=== PATIENT | male | born 1950 | race Caucasian/White ===

== ENCOUNTER 2025-06-15 11:52 | Emergency (ER) | payer MEDICARE, BC, SELFPAY ==
--- NOTE | 2025-06-15 11:45 | RT.EKG_ITS ---
APPROVED REPORT Exam: Resting ECG Reason for Exam: Heart problems Patient Location: E HR:65 bpm ECG Measurements Heart Rate 65 AXIS GA 151 P 72 QRSd 91 QRS 75 QT 405 T 44 QTc 422 Conclusion Sinus rhythm...normal P axis, V-rate 60- 99 No Occlusion OR
[2025-06-15 11:54] VITALS: BP 149/79; PULSE 70; RESP 16; TEMP 36.6; O2SAT 96
--- NOTE | 2025-06-15 12:00 | DI.RAD_ITS ---
Exam(s) XR CHEST 2V PA LATERAL EXAM: XR CHEST 2V PA LATERAL CLINICAL HISTORY: Chest pain TECHNIQUE: 2D digital imaging was performed. Two views. COMPARISON: No exams were available for comparison FINDINGS: HEART: Normal size. Aorta: Not dilated. PULMONARY VASCULATURE: Normal. MEDIASTINUM: Unremarkable. LUNGS: Clear. PLEURAL SPACE: No pleural effusion or pneumothorax. BONE:Unremarkable for age. SOFT TISSUES: Unremarkable. IMPRESSION: No acute abnormality. DATA REPOSITORY: RADIATION DOSE DELIVERED:
[2025-06-15 12:03] VITALS: PULSE 70
[2025-06-15 12:09] VITALS: PULSE 68; O2SAT 97
--- NOTE | 2025-06-15 12:10 | W.ED.GENAD ---
Discharge Plan Disposition Patient Disposition: Home Discharge Details Clinical Impression: Nausea, Dizziness Primary Care Provider: Jose Guadalupe Olivas ED Provider: Goyo Hamilton Home Meds and New Rx's Prescriptions: Continued amlodipine 5 mg tablet 5 mg PO DAILY tamsulosin [Flomax] 2 cap PO DAILY Discharge Instructions Additional Instructions: You were seen in the emergency department for your dizziness. Your blood work shows that you are having no signs of any damage to your heart. As we discussed if your dizziness returns if you develop chest pain or shortness breath or if you have any other concerns please return to the emergency department. Otherwise please follow-up with your primary care provider next week. HPI General Date/Time Provider Initiated Documentation: 06/15/25 11:59. HPI Narrative: MDM This is an overall quite well-appearing normothermic and not tachycardic 75-year-old male with nauseousness and dizziness. He did endorse some chest tightness so we will obtain troponin in setting of ischemic ECG to assess for ACS. He has no nystagmus so I did not applied hints exam as I was not suspicious for posterior circulation CVA. Furthermore he had no dysmetria and no Romberg nor dysmetria so I did not feel he required a CT scan of his head nor would he be a TNK candidate. He does endorse being stung yesterday by wasps but he is not hypotensive nor does he have any airway swelling or wheezing to suggest anaphylaxis so no indication for epinephrine. No pain or proportion to suggest necrotizing soft tissue infection. Given shortness of breath and low risk for PE will obtain dimer to stratify. No cough nor fevers to suggest pneumonia. No trauma to chest to suggest pneumothorax. Not hypotensive nor a dialysis patient making my suspicion low for tamponade. No rash to chest to suggest zoster. The patient's upper abdomen he has a well-circumscribed mobile approximately 1 cm subcutaneous nodule. He has no signs of incarceration or obstruction and I do not feel that this subcutaneous nodule represents a hernia I did not feel he required a CT scan of his abdomen. We discussed that he should monitor this area and return if it worsens grew again inflamed or if he had any other concerns. He has no erythema to suggest cellulitis. No fluctuance to suggest abscess. 1:53 PM Reassuring initial troponin. Reassuring proBNP. CBC lacks anemia or thrombocytopenia and leukocytosis. Basic metabolic panel with normal renal function. No acute electrolyte abnormalities. Normal reassuring magnesium. Chest x-ray with no acute cardiopulmonary process. 2:35 PM Repeat troponin with a reassuring delta. Age-adjusted negative D-dimer. Patient felt improved following meclizine. I offered to prescribe him meclizine but he declined this he wanted to continue monitoring his symptoms. We discussed that he should return to the emergency department if he developed any recurrent dizziness if you develop nausea vomiting that did not stop or if he developed any chest pain or shortness of breath. He understood his return indications and was discharged with empiric trial of expectant outpatient management. Diagnostic interpretations performed by me: Per my independent interpretation chest x-ray shows: Per my independent interpretation EKG shows: Narrow complex normal sinus rhythm at a rate of 65. Intervals within normal limits. No acute injury pattern. ]Medications: Meclizine HPI This is a patient with a history of hypertension and prediabetes presenting with dizziness and nausea. The patient reports experiencing dizziness, a sensation of the room spinning, and persistent nausea since waking up at 6:00 AM on 06/15/2025. He went to bed at 9:00 PM on 06/14/2025 without any issues. The dizziness intensifies when he attempts to stand or move. He also mentions an incident in 1986 where he woke up at 3:00 AM with a sensation of water pooling in his head, which was later attributed to hypertension. No cardiac issues were identified at that time. He drove himself to the appointment today. He is not experiencing any chest pain but feels short of breath, as if he is not getting enough air. He has attempted to vomit but only experienced dry heaves. He initially described chest pain shortness of breath to triage. The patient recalls being stung by wasps on his leg and another area of his body on 06/14/2025, and three times on 06/13/2025 while opening a wash on a different property. Exam General: Well-appearing in no acute distress speaking in complete sentences. Head: Normocephalic, atraumatic. Eye: Extraocular eye movements intact. No conjunctival injection. No scleral icterus. Ear, nose, mouth, throat: Grossly normal inspection. Normal voice, handling secretions normally. No upper airway swelling. Neck: Trachea midline. Cardiovascular: Well-perfused distal extremities. Regular rate and rhythm. Respiratory: Nonlabored respiration. Equal breath sounds no wheeze. Gastrointestinal: Nondistended abdomen. In the epigastric subcutaneous soft tissue there is a mobile submillimeter firm area no surrounding erythema. No fluctuance. Soft nontender abdomen. Musculoskeletal: No edema. Moving all 4 extremities spontaneously. Skin: Normal for age and race, grossly normal temperature and turgor. No acute rash. Neurologic: Alert and appropriate, no apparent acute deficits. Cranial nerves II through XII intact grossly. No dysmetria. No dysdiadochokinesia. No pronator drift. No truncal ataxia. Negative Romberg. 5 out of 5 bilateral upper and lower extremity strength. Psychiatric: Mood and manner are appropriate. Grooming and personal hygiene are appropriate. Related Data Home Medications ?Medication ?Instructions ?Recorded ?Confirmed amlodipine 5 mg tablet 5 mg PO DAILY 06/15/25 06/15/25 tamsulosin 2 cap PO DAILY 06/15/25 06/15/25 Allergies Allergy/AdvReac Type Severity Reaction Status Date / Time No Known Allergies Allergy Verified 06/15/25 11:59 General Stated Complaint: GenMedical RCISTY: 3 Course Vital Signs Vital signs: Vital Signs Temperature 36.6 C 06/15/25 11:54 Pulse 70 06/15/25 11:54 Respiratory Rate 16 06/15/25 11:54 Blood Pressure 149/79 H 06/15/25 11:54 Pulse Oximetry 96 06/15/25 11:54 Temperature 36.6 C 06/15/25 11:54 Temperature Source Oral 06/15/25 11:54 Pulse 68 06/15/25 12:09 Pulse 70 06/15/25 12:03 Respiratory Rate 16 06/15/25 11:54 Blood Pressure 149/79 H 06/15/25 11:54 Blood Pressure Position Sitting 06/15/25 11:54 Pulse Oximetry 97 06/15/25 12:09 Oxygen Delivery Method Room Air 06/15/25 12:09 Oxygen Flow Rate 0 06/15/25 12:09 Pain Level 4 06/15/25 11:54 PFSH All Active Problems (Updated 06/15/25 @ 14:36 by Goyo Hamilton MD) Dizziness (Acute) Nausea (Acute) Social History Smoking risk assessment performed?: No
[2025-06-15 12:25] LABS: Abs Immature Grans 0.03 10^3/uL (0.0-0.06); HCT 44.6 % (40.0-50.0); HGB 15.1 g/dL (13.5-17.5); Immature Grans % 0.5 %; MCH 31.2 pg (27.0-33.0); MCHC 33.9 % (32.0-36.0); MCV 92 fL (80-95); MPV 9.6 fL (8.0-11.0); Platelet Count 235 10^3/uL (130-400); RBC 4.84 10^6/uL (4.36-5.78); RDW 13.6 % (11.8-14.1); RDW-SD 46.8 fL; WBC 5.57 10^3/uL (4.4-10.8)
[2025-06-15] MEDS: Normal Saline 500 ML IV (12:36)
[2025-06-15] MEDS: Meclizine 25 MG TAB PO (12:38)
[2025-06-15] MEDS: Ondansetron 4 MG/2 ML VIAL IVP (12:38)
[2025-06-15 13:07] LABS: D-Dimer 512 ng/mlFEU (<500)
[2025-06-15 13:08] LABS: Anion Gap 8.8 mmol/L (3-11); BUN 19 mg/dL (7-18); CO2 26.2 mmol/L (21.0-32.0); Calcium 9.0 mg/dL (8.5-10.1); Chloride 106 mmol/L (98-107); Estimated GFR 97.29 (mL/min/1.73m2); Glucose 128 mg/dL (74-106); Magnesium 2.0 mg/dL (1.8-2.4); NT-proBNP 64 pg/mL (<300); Potassium 4.1 mmol/L (3.5-5.1); Sodium 141 mmol/L (136-145); Troponin I 5 ng/L (<or=76)
[2025-06-15 13:45] VITALS: BP 119/60; PULSE 52; RESP 20; O2SAT 97
[2025-06-15 14:27] LABS: Troponin I 6 ng/L (<or=76)
[2025-06-15 14:57] VITALS: BP 114/56; PULSE 58; RESP 18; O2SAT 95
== END 2025-06-15 14:56 | disposition home or self-care (01) ==
PROVIDERS: Emergency Provider Emergency Medicine; PCP Physician Assistant
DX: R11.0 Nausea (principal); R42 Dizziness and giddiness
CPT/HCPCS: 36415; 80048; 93005; 96374; 99285; 71046; 83735; 83880; 84484; 85025; 85379; 93010; 99284; J2405